=== PATIENT | female | born 1975 | race African-American/Black ===

== ENCOUNTER → 2016-09-17 | Outpatient (CLI) | payer OTHER ==
[2016-09-17 15:55] LABS: Anisocytosis Slight; Basophils % (A) 0 %; CH 17.7; CHCM 27.7; Eosinophils # (A) 0.2 k/uL (0-0.7); Eosinophils % (A) 3 %; HCT 30.4 % (34.0-46.0); HDW 3.59; HGB 8.3 gm/dL (11.4-16.0); Hypochromasia Marked; Luc # (Auto) 0.25; Luc % (Auto) 3; Lymphocytes # (A) 2.1 k/uL (1.0-4.8); Lymphocytes % (A) 27 %; MCH 17.6 pg (25.0-35.0); MCV 64.6 fL (80.0-100.0); Mean Platelet Volume 6.4; Microcytosis Marked; Monocytes # (A) 0.4 k/uL (0-1.0); Monocytes % (A) 6 %; Neutrophils # (A) 4.9 k/uL (1.3-7.7); Neutrophils % (A) 61 %; Poikilocytosis Slight; RBC Fragment Flag Slight; RDW 18.5 % (11.5-15.5); WBC 7.9 k/uL (3.8-10.6); WBC (Perox) 8.54
[2016-09-17 15:58] LABS: MCHC 27.2 g/dL (31.0-37.0)
[2016-09-17 16:41] LABS: Target Cells Present
== END ==
LOC: LABPAT 15:25
PROVIDERS: ATTEND Obstetrics & Gynecology
DX: Z01.818 Encounter for other preprocedural examination (principal)
CPT/HCPCS: 85025

== ENCOUNTER 2016-09-27 06:02 | Day surgery (SDC) | payer OTHER ==
[2016-09-26 09:17] VITALS: BMI 46.4
[~2016-09-27 06:02] MED LIST: DEXAMETHASONE SOD PHOSPHATE 10 MG/ML 1 ML VIAL IV ONE; HYDROmorphone 1 MG/ML 1 ML SYRINGE IVP PRN; LACTATED RINGERS 1,000 ML IV SCH; MIDAZOLAM 2 MG/2 ML VIAL IV PRN; ONDANSETRON 4 MG/2 ML VIAL IVP ONE; Pre Op ABX Message 1 EACH MISC MISCELLANE ONE; SCOPOLAMINE 1.5MG/72HR PATCH TRANSDERM ONE
[2016-09-27] MEDS ORDERED: LIDOCAINE 1% 20 ML VIAL (10MG/ML) FOR IV START INTRADERMA ONE (06:36)
--- NOTE | 2016-09-27 06:53 | P.HPOB ---
History of Present Illness H&P Date: 09/27/16 Chief Complaint: Menorrhagia 41 year old presents for D&C hysteroscopy and endometrial ablation with NovaSure as well as an IUD removal. Review of Systems All systems: negative Constitutional: Denies chills, Denies fever Eyes: denies blurred vision, denies pain Ears, nose, mouth and throat: Denies headache, Denies sore throat Cardiovascular: Denies chest pain, Denies shortness of breath Respiratory: Denies cough Gastrointestinal: Denies abdominal pain, Denies diarrhea, Denies nausea, Denies vomiting Genitourinary: Denies dysuria, Denies hematuria Musculoskeletal: Denies myalgias Integumentary: Denies pruritus, Denies rash Neurological: Denies numbness, Denies weakness Psychiatric: Denies anxiety, Denies depression Endocrine: Denies fatigue, Denies weight change Past Medical History Past Medical History: Osteoarthritis (OA) Additional Past Medical History / Comment(s): MIGRAINE HEADACHE,GLAUCOMA History of Any Multi-Drug Resistant Organisms: None Reported Past Surgical History: Section, Joint Replacement, Orthopedic Surgery Additional Past Surgical History / Comment(s): tumor removed from neck, TOTAL KNEE -LEFT , REVISION OF TOTAL LEFT KNEE, MANIPULATION OF LEFT KNEE X 2 AND SPACER LEFT KNEE Past Anesthesia/Blood Transfusion Reactions: No Reported Reaction Past Psychological History: Anxiety, Bipolar, Depression Smoking Status: Never smoker Past Alcohol Use History: None Reported Past Drug Use History: None Reported - Past Family History Mother Family Medical History: No Reported History Medications and Allergies Home Medications Medication Instructions Recorded Confirmed Type Citalopram Hydrobromide [CeleXA] 20 mg PO DAILY 04/26/14 09/27/16 History Naproxen [Naprosyn] 500 mg PO DIRECTED PRN 04/26/14 09/27/16 History lamoTRIgine [LaMICtal] 25 mg PO DAILY 04/26/14 09/27/16 History Pregabalin [Lyrica] 75 mg PO BID 04/05/15 09/27/16 History QUEtiapine [SEROquel] 150 mg PO HS 04/05/15 09/27/16 History Ferrous Sulfate [Feosol] 325 mg PO DAILY 09/26/16 09/27/16 History Verapamil HCl [Verapamil ER] 180 mg PO DAILY 09/26/16 09/27/16 History Allergies Allergy/AdvReac Type Severity Reaction Status Date / Time shellfish derived [Shellfish] Allergy Swelling,RASH, Verified 09/27/16 06:33 VOMITING Exam Osteopathic Statement: *. No significant issues noted on an osteopathic structural exam other than those noted in the History and Physical/Consult. - Vital Signs Vital signs: Vital Signs Temp Pulse Resp BP Pulse Ox 09/27/16 06:31 98.3 F 102 H 16 125/65 96 Intake and Output 09/26/16 09/26/16 09/27/16 14:59 22:59 06:59 Other: Weight 118.841 kg Patient Weight 09/27/16 06:59 Weight 118.841 kg Heart: Regular rate and rhythm Lungs: Clear to auscultation bilaterally Abdomen: Soft, nontender Extremities: Negative Homans sign Assessment and Plan (1) Menorrhagia with irregular cycle Status: Acute Plan: D&C, hysteroscopy, endometrial ablation with NovaSure. Mirena IUD removal
[2016-09-27] MEDS ORDERED: SUCCINYLCHOLINE CHLORIDE 100 MG/5 ML SYR IV ONE (07:06)
[2016-09-27] MEDS ORDERED: KETOROLAC 30 MG/ML 1 ML VIAL ONE (07:06)
[2016-09-27] MEDS ORDERED: MIDAZOLAM 2 MG/2 ML VIAL ONE (07:06)
[2016-09-27] MEDS ORDERED: fentaNYL (PF) 50 MCG/ML 2 ML AMP ONE (07:06)
[2016-09-27] MEDS ORDERED: PROPOFOL 10 MG/ML 20 ML VIAL IV ONE (07:06)
[2016-09-27] MEDS ORDERED: LIDOCAINE 1% INJ 10MG/ML (20 ML MDV) ONE (07:06)
--- NOTE | 2016-09-27 07:44 | P.OP ---
Date of Procedure: 09/27/16 Preoperative Diagnosis: Menorrhagia Postoperative Diagnosis: Menorrhagia Procedure(s) Performed: Removal of Mirena IUD, D&C, hysteroscopy, endometrial ablation with NovaSure Anesthesia: NAT Surgeon: Xochitl Justin Estimated Blood Loss (ml): 10 IV fluids (ml): 300 Urine output (ml): 15 Pathology: other (Endometrial curettings) Condition: stable Disposition: PACU Operative Findings: Cavity length 6.5 cm, width 2.6 cm, power 93 W, time of ablation 45 seconds. Hysteroscopy did appear to be a fibroid encroaching on the endometrial cavity Description of Procedure: Patient is taken the operating room where general anesthesia was obtained without difficulty. She was prepped and draped in normal sterile fashion dorsal lithotomy position, legs placed in the [employer] cane stirrups. During the prep the IUD did come out. Bladder was drained of all urine. Weighted speculum placed in the vagina and the anterior lip the cervix was grasped with serial tooth tenaculum. The uterus sounded to 10 cm and the cervix under 3.5 cm making the cavity length 6.5 cm. The cervix was dilated to #8 Hegar dilator. Hysteroscopy was then performed. There was a large amount of proliferative endometrium seen, and a probable fibroid encroaching on the serial aspect of the endometrium. Sharp curet was then gently used to obtain endometrial curettings. The NovaSure was introduced into the uterus with a cavity length of 6.5 cm, width 3.5 cm. after cavity assessment was passed, the time of ablation was 45 seconds at 93 W. Hysteroscopy was again performed and the fibroid was again seen, there were areas of ablation and areas of continued pink tissue. All instruments removed from the vagina. Patient tolerated the procedure well, sponge and instrument counts were correct 2 and she was taken to recovery in stable condition.
[2016-09-27 07:54] VITALS: TEMP 97.5
[2016-09-27 08:02] VITALS: RESP 16
[2016-09-27 09:53] VITALS: BP 129/79; PULSE 107
== END 2016-09-27 10:16 | disposition home or self-care (01) ==
LOC: OR 06:02
PROVIDERS: ATTEND Obstetrics & Gynecology
DX: N92.0 Excessive and frequent menstruation with regular cycle (principal); Z30.432 Encounter for removal of intrauterine contraceptive device; M19.90 Unspecified osteoarthritis, unspecified site; H40.9 Unspecified glaucoma; G43.909 Migraine, unspecified, not intractable, without status migrainosus; F41.8 Other specified anxiety disorders; F31.9 Bipolar disorder, unspecified; Z79.899 Other long term (current) drug therapy; Z96.652 Presence of left artificial knee joint; Z91.013 Allergy to seafood
CPT/HCPCS: 81025; 88305; 58563; J2250; J1100; J2405; J2001; J3010; J1885; J0330; J2704

== ENCOUNTER → 2016-12-02 | Outpatient (CLI) | payer OTHER ==
[2016-12-02 13:32] LABS: Anion Gap 8 mmol/L; Blood Urea Nitrogen 6 mg/dL (7-17); Carbon Dioxide 22 mmol/L (22-30); Chloride 109 mmol/L (98-107); Glucose 101 mg/dL (74-99); Non-African American GFR(MDRD) 57 (>60 ml/min/1.73 sqM); Potassium 4.5 mmol/L (3.5-5.1); Sodium 139 mmol/L (137-145)
[2016-12-02 13:46] LABS: Anisocytosis Slight; Basophils % (A) 1 %; CH 16.4; CHCM 26.8; Eosinophils # (A) 0.3 k/uL (0-0.7); Eosinophils % (A) 6 %; HCT 29.6 % (34.0-46.0); HDW 3.51; HGB 7.7 gm/dL (11.4-16.0); Hypochromasia Marked; Luc # (Auto) 0.09; Luc % (Auto) 2; Lymphocytes # (A) 1.6 k/uL (1.0-4.8); Lymphocytes % (A) 31 %; MCH 16.2 pg (25.0-35.0); MCHC 26.1 g/dL (31.0-37.0); MCV 61.9 fL (80.0-100.0); Mean Platelet Volume 6.4; Microcytosis Marked; Monocytes # (A) 0.3 k/uL (0-1.0); Monocytes % (A) 5 %; Neutrophils # (A) 2.8 k/uL (1.3-7.7); Neutrophils % (A) 55 %; Poikilocytosis Slight; RBC 4.79 m/uL (3.80-5.40); RBC Fragment Flag Slight; RDW 19.7 % (11.5-15.5); WBC (Perox) 4.91
[2016-12-02 13:57] LABS: Manual Review Performed; Target Cells Present
== END | disposition home or self-care (01) ==
LOC: LABWHC1 12:46
PROVIDERS: ATTEND Obstetrics & Gynecology
DX: Z01.812 Encounter for preprocedural laboratory examination (principal)
CPT/HCPCS: 36415; 80048; 85025

== ENCOUNTER 2016-12-09 05:56 | Observation (INO) | payer OTHER ==
[2016-12-04 13:47] VITALS: BMI 47.9
[~2016-12-09 05:56] MED LIST changes: -HYDROmorphone 1 MG/ML 1 ML SYRINGE IVP PRN; -LACTATED RINGERS 1,000 ML IV SCH; -Pre Op ABX Message 1 EACH MISC MISCELLANE ONE; +ceFAZolin 2 GM in SODIUM CHLORIDE 0.9% 100 ML IVPB ONE
[2016-12-09] MEDS: LACTATED RINGERS 1,000 ML IV SCH ×5 (06:31→23:10)
[2016-12-09] MEDS ORDERED: LIDOCAINE 1% 20 ML VIAL (10MG/ML) FOR IV START INTRADERMA ONE (06:38)
--- NOTE | 2016-12-09 06:47 | P.HPOB ---
History of Present Illness H&P Date: 12/09/16 Chief Complaint: menorrhagia, fibroid uterus 41 year old presents for total laparoscopic hysterectomy with da Natalya due to menorrhagia. Review of Systems All systems: negative Constitutional: Denies chills, Denies fever Eyes: denies blurred vision, denies pain Ears, nose, mouth and throat: Denies headache, Denies sore throat Cardiovascular: Denies chest pain, Denies shortness of breath Respiratory: Denies cough Gastrointestinal: Denies abdominal pain, Denies diarrhea, Denies nausea, Denies vomiting Genitourinary: Denies dysuria, Denies hematuria Musculoskeletal: Denies myalgias Integumentary: Denies pruritus, Denies rash Neurological: Denies numbness, Denies weakness Psychiatric: Denies anxiety, Denies depression Endocrine: Denies fatigue, Denies weight change Past Medical History Past Medical History: Osteoarthritis (OA) Additional Past Medical History / Comment(s): migraines, back pain, neuropathy, anemia, hx. uterine fibroids, polyps and heavy periods History of Any Multi-Drug Resistant Organisms: None Reported Past Surgical History: Section, Joint Replacement, Orthopedic Surgery Additional Past Surgical History / Comment(s): neck tumor removed, total lt knee replacement and revision of knee Past Anesthesia/Blood Transfusion Reactions: Motion Sickness Past Psychological History: Anxiety, Bipolar, Depression Smoking Status: Never smoker Past Alcohol Use History: None Reported Past Drug Use History: None Reported - Past Family History Mother Family Medical History: No Reported History Medications and Allergies Home Medications Medication Instructions Recorded Confirmed Type Citalopram Hydrobromide [CeleXA] 20 mg PO DAILY 04/26/14 12/09/16 History Naproxen [Naprosyn] 500 mg PO DIRECTED PRN 04/26/14 12/04/16 History lamoTRIgine [LaMICtal] 200 mg PO HS 04/26/14 12/09/16 History Pregabalin [Lyrica] 75 mg PO BID 04/05/15 12/09/16 History QUEtiapine [SEROquel] 150 mg PO HS 04/05/15 12/09/16 History Ferrous Sulfate [Feosol] 325 mg PO DAILY 09/26/16 12/09/16 History Verapamil HCl [Verapamil ER] 180 mg PO DAILY PRN 09/26/16 12/09/16 History Allergies Allergy/AdvReac Type Severity Reaction Status Date / Time shellfish derived [Shellfish] Allergy Swelling,RASH, Verified 12/04/16 13:50 VOMITING Exam Osteopathic Statement: *. No significant issues noted on an osteopathic structural exam other than those noted in the History and Physical/Consult. - Vital Signs Vital signs: Vital Signs Temp Pulse Resp BP Pulse Ox 12/09/16 06:26 98.2 F 93 18 128/74 97 Heart: Regular rate and rhythm Lungs: Clear to auscultation bilaterally Abdomen: Soft, nontender Extremities: Negative Homans sign Assessment and Plan (1) Menorrhagia with irregular cycle Status: Acute (2) Fibroid uterus Status: Acute Plan: 1. Total laparoscopic hysterectomy with da Natalya
[2016-12-09] MEDS ORDERED: PHENYLEPHRINE-0.9% NACL SYG 1 MG/10 ML SYRINGE ONE (07:20)
[2016-12-09] MEDS ORDERED: ESMOLOL 100 MG/10 ML VIAL ONE (07:20)
[2016-12-09] MEDS ORDERED: SUCCINYLCHOLINE CHLORIDE 100 MG/5 ML SYR IV ONE (07:20)
[2016-12-09] MEDS ORDERED: MIDAZOLAM 2 MG/2 ML VIAL ONE (07:20)
[2016-12-09] MEDS ORDERED: HYDROmorphone (PF) 1 MG/ML ONE (07:20)
[2016-12-09] MEDS ORDERED: GLYCOPYRROLATE 0.2 MG/ML 2 ML VIAL ONE (07:20)
[2016-12-09] MEDS ORDERED: ROCURONIUM BROMIDE 10 MG/ML 10 ML VIAL IV ONE (07:20)
[2016-12-09] MEDS ORDERED: NEOSTIGMINE 1 MG/ML 10 ML VIAL ONE (07:20)
[2016-12-09] MEDS ORDERED: LIDOCAINE 1% INJ 10MG/ML (20 ML MDV) ONE (07:20)
[2016-12-09] MEDS ORDERED: PROPOFOL 10 MG/ML 20 ML VIAL IV ONE (07:20)
[2016-12-09] MEDS ORDERED: fentaNYL (PF) 50 MCG/ML 2 ML AMP ONE (07:20)
[2016-12-09] MEDS ORDERED: BUPIVACAINE (PF) 0.25% 30 ML VIAL SQ ONE (07:53)
[2016-12-09 08:07] LABS: Anisocytosis Slight; Basophils % (A) 0 %; CH 16.4; CHCM 27.8; Eosinophils # (A) 0.3 k/uL (0-0.7); Eosinophils % (A) 6 %; HCT 26.5 % (34.0-46.0); HGB 7.2 gm/dL (11.4-16.0); Hypochromasia Marked; Luc # (Auto) 0.19; Luc % (Auto) 3; Lymphocytes # (A) 1.5 k/uL (1.0-4.8); Lymphocytes % (A) 28 %; MCH 16.2 pg (25.0-35.0); MCHC 27.2 g/dL (31.0-37.0); MCV 59.7 fL (80.0-100.0); Mean Platelet Volume 5.7; Microcytosis Marked; Monocytes # (A) 0.3 k/uL (0-1.0); Monocytes % (A) 5 %; Neutrophils # (A) 3.1 k/uL (1.3-7.7); Neutrophils % (A) 57 %; Poikilocytosis Slight; RBC 4.45 m/uL (3.80-5.40); RBC Fragment Flag Slight; RDW 19.5 % (11.5-15.5); WBC 5.4 k/uL (3.8-10.6); WBC (Perox) 5.63
[2016-12-09 08:53] LABS: Ovalocytes Present; Polychromasia Present; Target Cells Present
--- NOTE | 2016-12-09 09:01 | P.OP ---
Date of Procedure: 12/09/16 Preoperative Diagnosis: 1. Menorrhagia with irregular cycle causing anemia 2. Fibroid uterus Postoperative Diagnosis: 1. Menorrhagia with irregular cycle causing anemia 2. Fibroid uterus Procedure(s) Performed: Total laparoscopic hysterectomy with da Natalya Implants: Anesthesia: JOSEPHA Surgeon: Xochitl Justin Glass Rolling Machine Operator #1: Bruno Vidal Estimated Blood Loss (ml): 40 IV fluids (ml): 700 Urine output (ml): 200 Pathology: other (Uterus and cervix) Condition: stable Disposition: PACU Indications for Procedure: Operative Findings: Fibroid uterus normal tubes and ovaries Description of Procedure: Patient taken the operating room where general anesthesia was obtained without difficulty. She is prepped and draped in normal sterile fashion dorsal lithotomy position, legs placed in the Jaciel stirrups. Weighted speculum placed in the vagina and the anterior lip the cervix was grasped with single- tooth tenaculum. The uterus sounded to 10 cm and the cervix diameter was 3.5 cm. The appropriate manipulator tip and ring were placed on the Shweta manipulator. The Shweta manipulator was then placed in the uterus. Hoskins catheter was also placed. Attention was then turned to the abdomen and gloves were changed. A 5 mm supraumbilical incision was made the scalpel and a 5 mm optical trocar was placed under direct visualization. 10 cm to the right of this and 2 cm down a 5 mm incision was made and 8 mm da Natalya port was placed under direct visualization. Same measurements on the opposite side of the patient's abdomen, the 5 mm incision was made and 8 mm da Natalya port was placed under direct visualization. In the left upper quadrant a 10 mm incision was made and a 10 mm optical trocar was placed under direct visualization. The 5 mm optical trocar was then replaced with the 8 mm da Natalya camera port. There was some omental adhesions to the anterior abdominal wall which were taken down in a blunt manner with a laparoscopic grasper. The robot was docked on patient' s right side. The camera was introduced and then the monopolar curved scissor and [place] bipolar placed under direct visualization. I broke scrub and went to the physician console. The left utero-ovarian ligament was cauterized with the [place] bipolar and cut with monopolar curved scissors. The left round ligament was cauterized with the [place] bipolar and cut with monopolar curved scissors. The posterior leaf of the broad ligament was taken down using the monopolar curved scissors. Anterior leaf of the broad ligament was then taken down using the monopolar curved scissors. The uterine artery was cauterized with the [place] bipolar and cut with monopolar curved scissors. The bladder flap was then started using the monopolar curved scissors. Attention was then turned to the right side of the patient's anatomy and the right utero-ovarian ligament was cauterized with the [place] bipolar and cut with monopolar curved scissors. The right round ligament was cauterized with the [place] bipolar and cut with monopolar curved scissors. Posterior leaf of the broad ligament was taken down using the monopolar curved scissors and the anterior leaf was taken down using the monopolar curved scissors. The uterine artery was cauterized the [place] bipolar cut with monopolar curved scissors. The bladder flap was then finished on this side. Anterior colpotomy was made using the monopolar curved scissors. The rest of the uterus was from the vaginal cuff by following the ring around with the monopolar curved scissors through the uterosacral ligaments back to the anterior portion. Once the uterus and cervix were amputated they were pulled through the vaginal cuff. Hemostasis was assured. The instruments were changed for the Cardier forcep and the amy suture cut. The vaginal cuff was then closed using O stratafix barbed suture in a running fashion. Hemostasis was again assured and the pelvis was irrigated. All instruments were removed from the abdomen and the robot was undocked. I scrubbed back in to perform a cystoscopy. There were jets from both ureteral orifices. The abdominal incisions were closed with 4-0 Vicryl in a subcuticular fashion. Patient tolerated the procedure well, sponge and instrument counts correct 2 and she was taken to recovery room in stable condition condition
[2016-12-09] MEDS ORDERED: KETOROLAC 30 MG/ML 1 ML VIAL IVP ONE (09:35)
[2016-12-09] MEDS: HYDROmorphone 1 MG/ML 1 ML SYRINGE IVP PRN ×2 (09:35→09:41)
[2016-12-09 10:20] VITALS: RESP 20
[2016-12-09] MEDS ORDERED: SIMETHICONE 80 MG CHEWABLE PO PRN (10:27)
[2016-12-09] MEDS ORDERED: diphenhydrAMINE 50 MG/ML 1 ML VIAL IVP PRN (10:27)
[2016-12-09] MEDS ORDERED: Acetaminophen-Codeine 300-30mg TAB PO PRN ×2 (10:27)
[2016-12-09] MEDS ORDERED: ONDANSETRON 4 MG/2 ML VIAL IVP PRN (10:27)
[2016-12-09] MEDS ORDERED: CYCLOBENZAPRINE 5 MG TAB PO PRN (10:27)
[2016-12-09] MEDS ORDERED: VERAPAMIL HCL 180 MG PO PRN (10:27)
[2016-12-09] MEDS ORDERED: IBUPROFEN 600 MG TAB PO PRN (10:27)
[2016-12-09] MEDS: HYDROcodone/APAP 7.5-325MG 1 EACH TAB PO PRN ×2 (13:13→23:08)
[2016-12-09] MEDS: CITALOPRAM HYDROBROMIDE 20 MG TAB PO SCH (14:22)
[2016-12-09] MEDS: SENNOSIDES-DOCUSATE SODIUM 1 EACH TAB PO SCH ×2 (14:22→20:11)
[2016-12-09] MEDS: FERROUS SULFATE 325 MG TAB PO SCH (14:22)
[2016-12-09] MEDS: KETOROLAC 30 MG/ML 1 ML VIAL IVP PRN ×2 (14:51→23:11)
[2016-12-09] MEDS: PREGABALIN 75 MG CAP PO SCH ×3 (19:56→20:25)
[2016-12-09] MEDS ORDERED: lamoTRIgine 100 MG TAB PO SCH (21:00)
[2016-12-09] MEDS ORDERED: QUEtiapine 50 MG TAB PO SCH (21:00)
[2016-12-10 07:29] LABS: Anisocytosis Slight; Basophils % (A) 0 %; CH 16.4; CHCM 26.9; Eosinophils # (A) 0.1 k/uL (0-0.7); Eosinophils % (A) 1 %; HCT 26.3 % (34.0-46.0); HDW 3.44; Hypochromasia Marked; Luc # (Auto) 0.14; Luc % (Auto) 2; Lymphocytes # (A) 1.7 k/uL (1.0-4.8); Lymphocytes % (A) 22 %; MCH 15.9 pg (25.0-35.0); MCHC 25.9 g/dL (31.0-37.0); MCV 61.5 fL (80.0-100.0); Mean Platelet Volume 6.2; Microcytosis Marked; Monocytes # (A) 0.5 k/uL (0-1.0); Monocytes % (A) 6 %; Neutrophils # (A) 5.6 k/uL (1.3-7.7); Neutrophils % (A) 70 %; Poikilocytosis Slight; RBC 4.28 m/uL (3.80-5.40); RBC Fragment Flag Slight; RDW 19.8 % (11.5-15.5); WBC 8.1 k/uL (3.8-10.6); WBC (Perox) 8.23
[2016-12-10 07:39] LABS: HGB 6.8 gm/dL (11.4-16.0)
--- NOTE | 2016-12-10 07:51 | P.DS ---
Providers Date of admission: 12/09/16 23:20 Expected date of discharge: 12/10/16 Attending physician: Xochitl Justin Primary care physician: Stated None - Discharge Diagnosis(es) (1) Menorrhagia with irregular cycle Current Visit: No Status: Resolved (2) Fibroid uterus Current Visit: Yes Status: Resolved (3) History of robot-assisted laparoscopic hysterectomy Current Visit: Yes Status: Acute Hospital Course: Patient presented for TLH with da iris. She underwent a this procedure without complication. She does have anemia from her menorrhagia and the hemoglobin did drop slightly after surgery. She is not symptomatic and will be discharged home with pain medication and to take iron at home. Plan - Discharge Summary New Discharge Prescriptions: New HYDROcodone/APAP 7.5-325MG [Laquey 7.5-325] 1 each PO Q4HR PRN #30 tab PRN Reason: Pain Ibuprofen [Motrin] 600 mg PO Q6HR PRN #30 tab PRN Reason: Mild Discomfort No Action Naproxen [Naprosyn] 500 mg PO BID PRN PRN Reason: Pain Cyclobenzaprine [Flexeril] 5 mg PO TID PRN #15 tablet PRN Reason: Spasms Pregabalin [Lyrica] 75 mg PO BID Ferrous Sulfate [Feosol] 325 mg PO DAILY Verapamil HCl [Verapamil ER] 180 mg PO DAILY PRN PRN Reason: Headache lamoTRIgine [LaMICtal] 200 mg PO HS QUEtiapine [SEROquel] 200 mg PO HS Citalopram Hydrobromide [CeleXA] 40 mg PO DAILY Discharge Medication List Cyclobenzaprine [Flexeril] 5 mg PO TID PRN #15 tablet 04/26/14 [Rx] Naproxen [Naprosyn] 500 mg PO BID PRN 04/26/14 [History] Pregabalin [Lyrica] 75 mg PO BID 04/05/15 [History] Ferrous Sulfate [Feosol] 325 mg PO DAILY 09/26/16 [History] Verapamil HCl [Verapamil ER] 180 mg PO DAILY PRN 09/26/16 [History] Citalopram Hydrobromide [CeleXA] 40 mg PO DAILY 12/09/16 [History] QUEtiapine [SEROquel] 200 mg PO HS 12/09/16 [History] lamoTRIgine [LaMICtal] 200 mg PO HS 12/09/16 [History] HYDROcodone/APAP 7.5-325MG [Laquey 7.5-325] 1 each PO Q4HR PRN #30 tab 12/10/16 [ Rx] Ibuprofen [Motrin] 600 mg PO Q6HR PRN #30 tab 12/10/16 [Rx] Follow up Appointment(s)/Referral(s): Xochitl Justin DO [Doctor of Osteopathic Medicine] - 3 Weeks Discharge Disposition: HOME SELF-CARE
[2016-12-10 08:46] VITALS: BP 109/59; PULSE 82; TEMP 97.7
[2016-12-10] MEDS: FERROUS SULFATE 325 MG TAB PO SCH (09:15)
[2016-12-10] MEDS: PREGABALIN 75 MG CAP PO SCH (09:15)
[2016-12-10] MEDS: CITALOPRAM HYDROBROMIDE 20 MG TAB PO SCH (09:15)
[2016-12-10 11:43] LABS: Polychromasia Present; Target Cells Present
[2016-12-10 11:44] LABS: Manual Review Performed
[2016-12-10] MEDS: SENNOSIDES-DOCUSATE SODIUM 1 EACH TAB PO SCH (13:05)
== END 2016-12-10 13:37 | disposition home or self-care (01) ==
LOC: OR 05:56 → 6PED 08:51 → OR 23:20 → 6PED 23:20
PROVIDERS: ADMIT Obstetrics & Gynecology; ATTEND Obstetrics & Gynecology
DX: D25.1 Intramural leiomyoma of uterus (principal); N72 Inflammatory disease of cervix uteri; N87.9 Dysplasia of cervix uteri, unspecified; D25.0 Submucous leiomyoma of uterus; N80.0 Endometriosis of uterus; M19.90 Unspecified osteoarthritis, unspecified site; G43.909 Migraine, unspecified, not intractable, without status migrainosus; G62.9 Polyneuropathy, unspecified; D64.9 Anemia, unspecified; F31.9 Bipolar disorder, unspecified; F41.9 Anxiety disorder, unspecified; Z79.899 Other long term (current) drug therapy; Z91.013 Allergy to seafood
CPT/HCPCS: 58570; S2900; 81025; 85025; 86850; 86870; 86900; 86901; 88307

== ENCOUNTER 2017-11-25 09:23 | Emergency (ER) | payer OTHER ==
[2017-11-25 09:46] VITALS: TEMP 98.1
[2017-11-25 12:19] VITALS: BP 118/64; PULSE 82; RESP 18
--- NOTE | 2017-11-25 12:34 | XR ---
EXAMINATION TYPE: XR ribs RT w pa chest xray DATE OF EXAM: 11/25/2017 COMPARISON: NONE HISTORY: Pain TECHNIQUE: Single view of the chest 4 views of the ribs are submitted. FINDINGS: The lungs are clear. No Evidence for pneumothorax. No evidence for focal contusion. Medi astinal structures are midline. Evaluation of the ribs fails to demonstrate evidence for displaced r ib fracture or secondary sign of rib fracture. IMPRESSION: Negative study
--- NOTE | 2017-11-25 13:13 | ED ---
General Adult HPI - General Chief complaint: Back Pain/Injury Stated complaint: Rib Pain Time Seen by Provider: 11/25/17 11:40 Source: patient, RN notes reviewed Mode of arrival: ambulatory Limitations: no limitations - History of Present Illness Initial comments: Patient 42-year-old female presenting to the emergency room today with a chief complaint of pain to the right side of her ribs. Patient does admit that she remembers a hard sneeze one week ago. She states that at times she's had a sharp pain. She states it's noticed it with certain movements or if she coughs or even takes a deep breath. She states it does not seem to be every time. She states that she's tried some naproxen with some relief. Patient does admit that was worse last night when she was moving around in bed. Patient denies any other complaints. Patient states that if she sits still she has no pain. Patient denies any recent fever, chills, shortness of breath, chest pain, back pain, abdominal pain, nausea or vomiting, numbness or tingling, dysuria or hematuria, constipation or diarrhea, headaches or visual changes, or any other complaints. - Related Data Home Medications Medication Instructions Recorded Confirmed Naproxen [Naprosyn] 500 mg PO BID PRN 04/26/14 11/25/17 Ferrous Sulfate [Feosol] 325 mg PO DAILY 09/26/16 11/25/17 Citalopram Hydrobromide [CeleXA] 40 mg PO DAILY 12/09/16 11/25/17 QUEtiapine [SEROquel] 200 mg PO HS 12/09/16 11/25/17 lamoTRIgine [LaMICtal] 200 mg PO HS 12/09/16 11/25/17 Gabapentin [Neurontin] 300 mg PO BID 05/06/17 11/25/17 Indomethacin [Indocin] 25 mg PO TID 11/25/17 11/25/17 Previous Rx's Medication Instructions Recorded Cyclobenzaprine [Flexeril] 5 mg PO TID PRN #15 tablet 04/26/14 Allergies Allergy/AdvReac Type Severity Reaction Status Date / Time shellfish derived [Shellfish] Allergy Swelling,RASH, Verified 11/25/17 10:41 VOMITING Review of Systems ROS Statement: Those systems with pertinent positive or pertinent negative responses have been documented in the HPI. ROS Other: All systems not noted in ROS Statement are negative. Past Medical History Past Medical History: Osteoarthritis (OA) Additional Past Medical History / Comment(s): back pain, neuropathy, anemia, History of Any Multi-Drug Resistant Organisms: None Reported Past Surgical History: Section, Hysterectomy, Joint Replacement, Orthopedic Surgery Additional Past Surgical History / Comment(s): neck tumor removed, left knee Past Anesthesia/Blood Transfusion Reactions: Motion Sickness Past Psychological History: Anxiety, Bipolar, Depression Smoking Status: Never smoker Past Alcohol Use History: None Reported Past Drug Use History: None Reported - Past Family History Mother Family Medical History: No Reported History General Exam - General Exam Comments Initial Comments: General: The patient is awake and alert, in no distress, and does not appear acutely ill. Eye: Pupils are equal, round and reactive to light, extra-ocular movements are intact. No nystagmus. There is normal conjunctiva bilaterally. No signs of icterus. Ears, nose, mouth and throat: There are moist mucous membranes and no oral lesions. Neck: The neck is supple, there is no tenderness or JVD. Cardiovascular: There is a regular rate and rhythm. No murmur, rub or gallop is appreciated. Respiratory: Lungs are clear to auscultation, respirations are non-labored, breath sounds are equal. No wheezes, stridor, rales, or rhonchi. Gastrointestinal: Soft, non-distended, non-tender abdomen without masses or organomegaly noted. There is no rebound or guarding present. No CVA tenderness. Musculoskeletal: Normal ROM. No tenderness in thoracic or lumbar spine. Patient does have tenderness to the right lateral posterior ribs on palpation. Point tender over the rib. Strength 5/5. Sensation intact. Pulses equal bilaterally 2+. Neurological: A&O x 3. CN II-XII intact, There are no obvious motor or sensory deficits. Coordination appears grossly intact. Speech is normal. Skin: Skin is warm and dry and no rashes or lesions are noted. Psychiatric: Cooperative, appropriate mood & affect, normal judgment. Limitations: no limitations Course Vital Signs 11/25/17 11/25/17 09:44 12:17 Temperature 98.1 F Pulse Rate 84 82 Respiratory 20 18 Rate Blood Pressure 132/76 118/64 O2 Sat by Pulse 100 100 Oximetry Medical Decision Making - Medical Decision Making X-ray reviewed negative for any acute abnormalities. Results were discussed with patient. Patient advised continued anti-inflammatories. Advised breast area with certain movements or if she coughs or sneezes. Advised return if any symptoms increase worsen. Disposition Clinical Impression: Rib pain on right side Disposition: HOME SELF-CARE Condition: Good Instructions: Rib Contusion (ED) Additional Instructions: Please brace holding area with certain movements as discussed. Please use anti- inflammatories for pain. Please follow-up family doctor over the next 2 days. return if any symptoms increase or worsen. Is patient prescribed a controlled substance at d/c from ED?: No Referrals: Justen aMn MD [Primary Care Provider] - 1-2 days Time of Disposition: 13:12
== END 2017-11-25 13:22 | disposition home or self-care (01) ==
LOC: EC 09:23
DX: R07.81 Pleurodynia (principal); D64.9 Anemia, unspecified; G62.9 Polyneuropathy, unspecified; M19.90 Unspecified osteoarthritis, unspecified site; F31.9 Bipolar disorder, unspecified; F41.9 Anxiety disorder, unspecified; Z79.1 Long term (current) use of non-steroidal anti-inflammatories (NSAID); Z79.899 Other long term (current) drug therapy; Z91.013 Allergy to seafood
CPT/HCPCS: 99283

== ENCOUNTER → 2019-07-15 | Outpatient (CLI) | payer OTHER ==
[2019-07-15 17:01] LABS: Reticulocyte % 1.6 % (0.5-2.0)
[2019-07-16 00:33] LABS: Ferritin 197.8 ng/mL (10.0-291.0)
[2019-07-16 00:36] LABS: % Iron Saturation 8.68 (12.00-45.00)
== END | disposition home or self-care (01) ==
LOC: LABWHC1 15:20
PROVIDERS: ATTEND Internal Medicine Hematology & Oncology
DX: D50.8 Other iron deficiency anemias (principal); D57.3 Sickle-cell trait; D57.40 Sickle-cell thalassemia without crisis
CPT/HCPCS: 36415; 82728; 83010; 83540; 83550; 85045; 85652